=== PATIENT | female | born 1990 | race Caucasian/White ===

== ENCOUNTER 2024-08-30 09:12 | Emergency (ER) | payer SELFPAY ==
[2024-08-30 09:52] LABS: BASOPHILS PERCENT AUTO 0.7 % (0.2-1.5); EOSINOPHILS PERCENT AUTO 0.6 % (0.6-8.1); HEMATOCRIT 36.9 % (34.2-48.2); LYMPHOCYTES ABSOLUTE AUTO 0.5 x10-3/uL (1.0-4.4); MEAN CORPUSCULAR HGB CONC 32.5 g/dL (31.9-34.8); MEAN CORPUSCULAR VOLUME 73.8 fL (76.7-100.5); MEAN PLATELET VOLUME 9.4 fL (7.1-12.4); MONOCYTES ABSOLUTE AUTO 0.4 x10-3/uL (0.3-1.0); NEUTROPHILS ABSOLUTE AUTO 1.9 x10-3/uL (1.5-6.3); NEUTROPHILS PERCENT AUTO 68.7 % (30.8-76.2); PLATELET COUNT,PLT 162 x10(3)uL (151-488); RED CELL DISTRIBUTION WIDTH 17.1 % (12.3-16.5); WHITE BLOOD CELL COUNT,WBC 2.8 x10-3/uL (3.0-10.3)
[2024-08-30] MEDS: Ketorolac 30 MG/ML SDV IM ONE (10:05)
[2024-08-30 10:30] LABS: INFLUENZA A NAA NEGATIVE (NEGATIVE); INFLUENZA B NAA POSITIVE (NEGATIVE); RESPIRATORY SYNCYTIAL VIR NAA NEGATIVE (NEGATIVE)
[2024-08-30 10:31] LABS: CORONAVIRUS COVID-19 NAA NEGATIVE (NEGATIVE)
[2024-08-30] MEDS: Ondansetron 4 MG Tab.DIS PO ONE ×2 (10:51→11:25)
[2024-08-30 11:56] VITALS: BP 129/75; PULSE 87
== END 2024-08-30 11:30 | disposition home or self-care (01) ==
LOC: FB.ED 09:12
DX: J10.1 Influenza due to other identified influenza virus with other respiratory manifestations (principal); Z88.0 Allergy status to penicillin; Z88.8 Allergy status to other drugs, medicaments and biological substances; Z79.899 Other long term (current) drug therapy
CPT/HCPCS: 0241U; 36415; 85025; 96372; 99283; 99284; J1885; Q0162